=== PATIENT | female | born 1990 | race American Indian/Alaskan Native ===

== ENCOUNTER 2016-09-20 22:23 | Emergency (ER) | payer SELFPAY ==
[2016-09-20 23:42] LABS: Basophils % (Auto) 0.6 % (0.0-1.8); Eosinophils % (Auto) 9.4 % (0.0-4.3); Hematocrit 33.6 % (30.3-42.9); Mean Corpuscular HGB Conc 33 % (30-34); Mean Corpuscular Hemoglobin 30 pg (28-32); Mean Corpuscular Volume 91 fl (79-97); Platelet Count 339 K/mm3 (140-440); Red Blood Count 3.68 M/mm3 (3.65-5.03); Red Cell Distribution Width 13.3 % (13.2-15.2); White Blood Count 16.3 K/mm3 (4.5-11.0)
[2016-09-20 23:52] LABS: Blood Urea Nitrogen 5 mg/dL (7-17); Calcium 8.6 mg/dL (8.4-10.2); Carbon Dioxide 23 mmol/L (22-30); Chloride 101.4 mmol/L (98-107); Glucose 109 mg/dL (65-100); Potassium 3.8 mmol/L (3.6-5.0); Sodium 138 mmol/L (137-145)
[2016-09-21 00:07] LABS: Anion Gap 17 mmol/L
[2016-09-21] MEDS ORDERED: MAGNESIUM SULFATE 2GM/50ML 50 ML IV ONE (00:58)
[2016-09-21] MEDS ORDERED: DUONEB 0.5 MG-3 MG/3 ML SOLN IH ONE ×2 (00:58→02:05)
[2016-09-21] MEDS ORDERED: NACL 0.9% 1000 ML 2,000 ML IV ONE (00:59)
--- NOTE | 2016-09-21 01:01 | Emergency Department Report ---
HPI - General Chief Complaint: Dyspnea/Respdistress Time Seen by Provider: 09/21/16 00:57 - HPI HPI: The patient is a 26-year-old female, , EGA 20 weeks, with a history of asthma, who presents for evaluation of cough and dyspnea. The patient reports 4 -5 days of a [id number] nonproductive cough, and progressively worsening dyspnea and wheezing. She states that her dyspnea has been severe and constant for the past one day, and is exacerbated with exertion. She denies any chest pain currently whatsoever. The patient also denies fever, syncope, hemoptysis, unilateral leg swelling, recent immobilization, history of DVT or PE, hx cancer. She states that she has received an ultrasound confirming IUP, and is taking vitamins daily. ED Past Medical Hx - Past Medical History Previous Medical History?: Yes Hx Asthma: Yes - Surgical History Past Surgical History?: No - Social History Smoking Status: Never Smoker Substance Use Type: Non Opiate Pain, Other - Medications Home Medications: Home Medications Medication Instructions Recorded Confirmed Last Taken Type ALBUTEROL Inhaler [ProAir HFA 2 puff IH QID PRN #2 can 08/15/16 Unknown Rx Inhaler] ALBUTEROL Inhaler [ProAir HFA 2 puff IH QID PRN #1 inhalation 09/21/16 Unknown Rx Inhaler] predniSONE [Deltasone] 20 mg PO QDAY #5 tab 09/21/16 Unknown Rx ED Review of Systems ROS: Stated complaint: SHORTNESS OF BREATH, CP Other details as noted in HPI Constitutional: denies: fever ENT: denies: throat or neck pain Respiratory: reports cough, shortness of breath Cardiovascular: denies: chest pain Endocrine: denies unexplained weight loss or gain Gastrointestinal: denies: abdominal pain, nausea Genitourinary: denies: dysuria Musculoskeletal: denies: leg swelling Skin: denies: rash Neurological: denies: headache Hematological/Lymphatic: denies: easy bleeding or easy bruising Psych: denies sadness or hopelessness Physical Exam - Physical Exam Vital Signs: Vital Signs 09/20/16 22:33 Temperature 98.1 F Pulse Rate 140 H Respiratory 20 Rate Blood Pressure 115/81 O2 Sat by Pulse 93 Oximetry Physical Exam: General: well-nourished, well-developed, no acute distress Head: Normocephalic, atraumatic Eyes: normal sclera ENT: Bilateral nasal congestion is present, Mucous membranes are pale and dry Neck: No neck stiffness, no cervical adenopathy Respiratory: Mildly diminished breath sounds and wheezing present to all wood bilaterally, no costal retractions, no respiratory distress Cardio: S1 and S2 present, no murmurs, rubs, gallops, capillary refill is delayed Abdomen: Normoactive bowel sounds, soft abdomen, no tenderness Chest WALL/Back: No tenderness to palpation of the chest wall, no CVA tenderness with percussion Musc: No pitting edema Skin: No rash Neuro: no facial drooping, normal speech Psych: Normal affect ED Course Vital Signs 09/20/16 22:33 Temperature 98.1 F Pulse Rate 140 H Respiratory 20 Rate Blood Pressure 115/81 O2 Sat by Pulse 93 Oximetry ED Medical Decision Making - Lab Data Result diagrams: 09/20/16 23:21 09/20/16 23:21 - Medical Decision Making The patient was seen and examined by myself. The patient is placed on a dashboard developer and continuous pulse ox. On initial evaluation, the patient was found to be in no distress. Evaluation orders were placed. The patient is given multiple DuoNeb breathing treatments, IV Solu-Medrol, IV magnesium, for treatment of her asthma exacerbation, and 2 L normal saline fluid bolus for treatment of dehydration. heart tones were obtained and were within normal limits at 150. Lab results were grossly not concerning. The patient shares that she received diagnostic testing negative for pulmonary embolism within the past 3 weeks at an outlying facility. The patient was reevaluated and reported that their symptoms were markedly improved. She states that she feels back to her baseline and wanted to be discharged home. On reexamination the patient is found to have normal respiratory rate, O2 sat on pulse oximetry, no costal retractions or diminishment of breath sounds on auscultation, and resolution of wheezing. The patient is stable for discharge with outpatient follow-up. The patient is given follow-up and return instructions. The patient expressed understanding and agreed with the plan. The patient is discharged in stable condition. Critical care attestation.: If time is entered above; I have spent that time in minutes in the direct care of this critically ill patient, excluding procedure time. ED Disposition Clinical Impression: Dehydration, Upper respiratory infection, acute, Asthma with acute exacerbation in adult Disposition: DISCHARGED TO HOME OR SELFCARE Is pt being admited?: No Does the pt Need Aspirin: No Condition: Stable Instructions: Asthma (ED), Upper Respiratory Infection (ED) Prescriptions: predniSONE [Deltasone] 20 mg PO QDAY #5 tab ALBUTEROL Inhaler [ProAir HFA Inhaler] 2 puff IH QID PRN #1 inhalation PRN Reason: Shortness Of Breath Referrals: YESENIA HERNANDES MD [Primary Care Provider] - 3-5 Days Time of Disposition: 01:01
[2016-09-21 02:09] VITALS: BP 119/78
== END 2016-09-21 03:39 | disposition home or self-care (01) ==
LOC: ED 22:23
DX: J45.901 Unspecified asthma with (acute) exacerbation (principal); E86.0 Dehydration; J06.9 Acute upper respiratory infection, unspecified
CPT/HCPCS: 36415; 80048; 83880; 84484; 85025; 85379; 93005; 93010; 96365; 96375; 99285; J2930; J3475; J7030

== ENCOUNTER 2017-08-13 11:21 | Emergency (ER) | payer MEDICAID ==
[2017-08-13 11:33] VITALS: BP 122/75
[2017-08-13] MEDS ORDERED: MORPHINE IM ONE (13:29)
--- NOTE | 2017-08-13 13:53 | Emergency Department Report ---
Chief Complaint: Extremity Injury, Lower Stated Complaint: LEFT KNEE PAIN Time Seen by Provider: 08/13/17 13:25 - HPI History of Present Illness: Patient is a 27-year-old female who is completely presenting with left knee pain. Patient states that she tripped over the commode and has dislocated her left knee. Patient states she is unable to straighten her knee on her own. She has lateral displacement of the knee. She is denying any other injuries was no head injury. No loss of consciousness. - Exam Vital Signs: Vital Signs 08/13/17 08/13/17 11:29 13:44 Temperature 97.7 F Pulse Rate 109 H Respiratory 18 20 Rate Blood Pressure 122/75 O2 Sat by Pulse 96 Oximetry Physical Exam: Focused physical exam general exam patient is a well-developed in no acute distress lung exam lungs clear to auscultation heart exam normal heart tones abdomen exam abdomen soft nontender muscle skeletal exam patient has her knee held at 90 of flexion there is lateral displacement of the patella there is a moderate effusion patient is neurovascularly intact neuro exam moving all extremities MSE screening note: Focused history and physical exam performed. Due to findings the following was ordered: ED Medical Decision Making - Medical Decision Making Patient is a 27-year-old female with a patellar dislocation. Patient was given 4 mg of morphine IM for pain control. Patient's patella was relocated by myself Vaz was moved to normal position straightening of the leg patient tolerated this procedure well without patient has been placed in a knee immobilizer with crutches and will be discharged home with pain management and also follow-up this concludes the dictation thank you ED Disposition for MSE Clinical Impression: Patellar dislocation Disposition: TO HOME OR SELFCARE Is pt being admited?: No Does the pt Need Aspirin: No Condition: Fair Instructions: Patellar Dislocation (ED) Prescriptions: HYDROcodone/APAP 5-325 [[place] 5/325] 1 each PO Q4HR PRN #15 tablet PRN Reason: Pain Ibuprofen [Motrin] 800 mg PO Q8HR PRN #15 tablet PRN Reason: Pain Referrals: MIGUEL GARCIA MD [Primary Care Provider] - 3-5 Days
== END 2017-08-13 14:14 | disposition home or self-care (01) ==
LOC: ED 11:21
DX: S83.005A Unspecified dislocation of left patella, initial encounter (principal); X58.XXXA Exposure to other specified factors, initial encounter; Y93.89 Activity, other specified; Y92.89 Other specified places as the place of occurrence of the external cause; Y99.8 Other external cause status
CPT/HCPCS: 27560; 96372; 99282; J2270

== ENCOUNTER 2019-04-27 15:46 | Emergency (ER) | payer SELFPAY ==
[2019-04-27 16:46] VITALS: BP 139/94
--- NOTE | 2019-04-27 17:26 | XRay Report ---
CHEST 2 VIEWS INDICATION / CLINICAL INFORMATION: COUGH AND WHEEZING. COMPARISON: None available. FINDINGS: SUPPORT DEVICES: None. HEART / MEDIASTINUM: No significant abnormality. LUNGS / PLEURA: No significant pulmonary or pleural abnormality. No pneumothorax. ADDITIONAL FINDINGS: No significant additional findings. IMPRESSION: 1. No acute findings. Signer Name: Pancho Bass MD Signed: 04/27/2019 5:21 PM Workstation Name: [id number]
[2019-04-27] MEDS ORDERED: DECADRON IM ONE (18:33)
[2019-04-27] MEDS ORDERED: ATROVENT IH ONE (18:34)
[2019-04-27] MEDS ORDERED: PROVENTIL IH ONE (18:34)
--- NOTE | 2019-04-27 19:11 | Emergency Department Report ---
ED Asthma HPI - General Chief Complaint: Dyspnea/Respdistress Stated Complaint: HEADACHE/FEVER/CHILLS Time Seen by Provider: 04/27/19 17:43 Source: patient Mode of arrival: Ambulatory Limitations: No Limitations - History of Present Illness Initial Comments: This is a 29-year-old female nontoxic, well nourished in appearance, no acute signs of distress presents to the ED with c/o of acute on chronic asthma exacerbation. Patient stated she has taken her albuterol inhaler with no significant relief. Patient stated also has some dry cough. Patient denies any sick contact. Patient denies any recent travels, long car, recent hospital stays. Patient denies any calf pain or calf tenderness. Patient denies any chest pain, short of breath, fever, chills, nausea, vomiting, hemoptysis, numbness, tingling, headache or stiff neck. Past medical history includes asthma. MD Complaint: "asthma attack", shortness of breath, wheezing -: days(s) Asthma History: childhood onset Severity: mild Associated Symptoms: dry cough. denies: fever, chest pain, hemoptysis, leg edema, syncope - Related Data Current Asthma Therapy: inhaled bronchodilator Previous Rx's Medication Instructions Recorded Last Taken Type ALBUTEROL Inhaler (OR & NICU) 2 puff IH QID PRN #2 can 08/15/16 09/20/16 Rx [ProAir HFA Inhaler] ALBUTEROL Inhaler (OR & NICU) 2 puff IH QID PRN #1 inhalation 09/21/16 Unknown Rx [ProAir HFA Inhaler] predniSONE [Deltasone] 20 mg PO QDAY #5 tab 09/21/16 Unknown Rx HYDROcodone/APAP 5-325 [[place] 1 each PO Q4HR PRN #15 tablet 08/13/17 Unknown Rx 5/325] Ibuprofen [Motrin] 800 mg PO Q8HR PRN #15 tablet 08/13/17 Unknown Rx Azithromycin [Zithromax Z-BROOKE] 250 mg PO DAILY 1 Days tab 07/09/18 Unknown Rx Prednisone [predniSONE 10 mg 10 mg PO .TAPER #1 tab.ds.pk 07/09/18 Unknown Rx (6-Day Pack, 21 Tabs)] ALBUTEROL Inhaler (OR & NICU) 2 puff IH QID PRN #1 inhalation 04/27/19 Unknown Rx [ProAir HFA Inhaler] Prednisone [predniSONE 10 mg 10 mg PO .TAPER #1 tab.ds.pk 04/27/19 Unknown Rx (6-Day Pack, 21 Tabs)] Allergies Allergy/AdvReac Type Severity Reaction Status Date / Time No Known Allergies Allergy Verified 04/27/19 15:48 ED Review of Systems ROS: Stated complaint: HEADACHE/FEVER/CHILLS Other details as noted in HPI Constitutional: denies: chills, fever Eyes: denies: eye pain, eye discharge, vision change ENT: denies: ear pain, throat pain Respiratory: cough, shortness of breath, wheezing Cardiovascular: denies: chest pain, palpitations Endocrine: no symptoms reported Gastrointestinal: denies: abdominal pain, nausea, diarrhea Genitourinary: denies: urgency, dysuria, discharge Musculoskeletal: denies: back pain, joint swelling, arthralgia Skin: denies: rash, lesions Neurological: denies: headache, weakness, paresthesias Psychiatric: denies: anxiety, depression Hematological/Lymphatic: denies: easy bleeding, easy bruising ED Past Medical Hx - Past Medical History Hx Asthma: Yes - Surgical History Additional Surgical History: - Social History Smoking Status: Never Smoker Substance Use Type: None - Medications Home Medications: Home Medications Medication Instructions Recorded Confirmed Last Taken Type ALBUTEROL Inhaler (OR & NICU) 2 puff IH QID PRN #2 can 08/15/16 09/21/16 09/20/16 Rx [ProAir HFA Inhaler] ALBUTEROL Inhaler (OR & NICU) 2 puff IH QID PRN #1 inhalation 09/21/16 Unknown Rx [ProAir HFA Inhaler] predniSONE [Deltasone] 20 mg PO QDAY #5 tab 09/21/16 Unknown Rx HYDROcodone/APAP 5-325 [[place] 1 each PO Q4HR PRN #15 tablet 08/13/17 Unknown Rx 5/325] Ibuprofen [Motrin] 800 mg PO Q8HR PRN #15 tablet 08/13/17 Unknown Rx Azithromycin [Zithromax Z-BROOKE] 250 mg PO DAILY 1 Days tab 07/09/18 Unknown Rx Prednisone [predniSONE 10 mg 10 mg PO .TAPER #1 tab.ds.pk 07/09/18 Unknown Rx (6-Day Pack, 21 Tabs)] ALBUTEROL Inhaler (OR & NICU) 2 puff IH QID PRN #1 inhalation 04/27/19 Unknown Rx [ProAir HFA Inhaler] Prednisone [predniSONE 10 mg 10 mg PO .TAPER #1 tab.ds.pk 04/27/19 Unknown Rx (6-Day Pack, 21 Tabs)] ED Physical Exam - General Limitations: No Limitations General appearance: alert, in no apparent distress - Head Head exam: Present: atraumatic, normocephalic - Neck Neck exam: Present: normal inspection, full ROM. Absent: tenderness, meningismus, lymphadenopathy - Respiratory Respiratory exam: Present: normal lung sounds bilaterally, wheezes (bilateral upper and lower lobes). Absent: respiratory distress, rales, rhonchi, stridor, chest wall tenderness, accessory muscle use, decreased breath sounds, prolonged expiratory - Cardiovascular Cardiovascular Exam: Present: regular rate, normal rhythm, normal heart sounds. Absent: irregular rhythm, systolic murmur, diastolic murmur, rubs, gallop - Extremities Exam Extremities exam: Present: normal inspection, full ROM, normal capillary refill. Absent: tenderness - Back Exam Back exam: Present: normal inspection, full ROM - Neurological Exam Neurological exam: Present: alert, oriented X3, normal gait - Psychiatric Psychiatric exam: Present: normal affect, normal mood - Skin Skin exam: Present: warm, dry, intact, normal color. Absent: rash ED Course Vital Signs 04/27/19 04/27/19 16:41 18:36 Temperature 99.2 F 98.6 F Pulse Rate 116 H 89 Respiratory 20 Rate Blood Pressure 139/94 O2 Sat by Pulse 97 Oximetry - Reevaluation(s) Reevaluation #1: 04/27/19 19:11 Patient is speaking in full sentences with no signs of distress noted. ED Medical Decision Making - Medical Decision Making This is a 29-year-old female that presents with asthma exacerbation. Patient is stable and was examined by me. Chest x-ray has been obtained and dictated by the radiologist within normal limits. Patient is notified of the x-ray report with no questions noted by the patient. Patient did receive DuoNeb and steroids in the ED which patient the symptoms has resolved and subsided. Posttreatment and there is no wheezing upon auscultation. Patient is discharged with albuterol and prednisone. Patient was referred to Follow-up with a primary care doctor in 3-5 days or if symptoms worsen and continue return to emergency room as soon as possible. At time of discharge, the patient does not seem toxic or ill in appearance. No acute signs of distress noted. Patient agrees to discharge treatment plan of care. No further questions noted by the patient. This chart is dictated with using [employer] Dictation Program Critical care attestation.: If time is entered above; I have spent that time in minutes in the direct care of this critically ill patient, excluding procedure time. ED Disposition Clinical Impression: Asthma exacerbation Disposition: DC-01 TO HOME OR SELFCARE Is pt being admited?: No Does the pt Need Aspirin: No Condition: Stable Instructions: Asthma (ED) Additional Instructions: Follow-up with a primary care doctor in 3-5 days or if symptoms worsen and continue return to emergency room as soon as possible. Prescriptions: Prednisone [predniSONE 10 mg (6-Day Pack, 21 Tabs)] 10 mg PO .TAPER #1 tab.ds.pk ALBUTEROL Inhaler (OR & NICU) [ProAir HFA Inhaler] 2 puff IH QID PRN #1 inhalation PRN Reason: Shortness Of Breath Referrals: MARITZA KIRAN MD [Primary Care Provider] - 3-5 Days PRIMARY CARE, [Referring] - 3-5 Days DEVIN ZENG MD [Staff Physician] - 3-5 Days [facility] [Outside] - 3-5 Days [facility] [Outside] - 3-5 Days Forms: Work/School Release Form(ED)
== END 2019-04-27 19:30 | disposition home or self-care (01) ==
LOC: ED 15:46
DX: J45.901 Unspecified asthma with (acute) exacerbation (principal)
CPT/HCPCS: 71046; J1100; 96372